=== PATIENT | male | born 1980 | race Caucasian/White ===

== ENCOUNTER 2017-12-02 02:42 | Observation (INO) | payer OTHER ==
[~2017-12-02] VITALS: Ht 182.9 cm; Wt 81.6 kg
[2017-12-02 03:17] LABS: BASOPHIL (%) 1.4 % (0-1); BASOPHIL COUNT 0.1 K/uL (0-0.1); EOSINOPHIL (%) 7.5 % (0-5); EOSINOPHIL COUNT 0.5 K/uL (0-0.3); IMMATURE GRANULOCYTE (%) 0.1 % (0.0-0.7); LYMPHOCYTE (%) 17.6 % (15-42); LYMPHOCYTE COUNT 1.3 K/uL (1.0-2.8); MCH 30.5 PG (29.0-34.0); MCHC 33.3 G/DL (30.0-36.0); MCV 91.4 FL (86-99); MONOCYTE (%) 6.8 % (3-12); MONOCYTE COUNT 0.5 K/uL (0-0.8); NEUTROPHIL (%) 66.6 % (45-76); NEUTROPHIL COUNT 4.8 K/uL (1.8-6.4); PLATELET COUNT 153 K/uL (156-360); RBC DIS.WIDTH-CV 13.8 % (11.8-14.6); RBC DIS.WIDTH-SD 46.3 % (39-53); RED BLOOD COUNT 3.61 M/uL (4.00-5.50); WHITE BLOOD COUNT 7.2 K/uL (4.1-10.2)
[2017-12-02 03:26] LABS: ALBUMIN 3.9 g/dL (3.2-4.8); CHLORIDE 97 mEq/L (99-109); POTASSIUM 3.7 mEq/L (3.7-5.4); SODIUM 137 mEq/L (136-147)
[2017-12-02 03:27] LABS: MAGNESIUM 2.4 mg/dL (1.3-2.7)
[2017-12-02 03:28] LABS: GLUCOSE 112 mg/dL (70-99); TOTAL PROTEIN 6.5 g/dL (6.4-8.3)
[2017-12-02 03:30] LABS: TOTAL BILIRUBIN 1.1 mg/dL (0.0-1.0)
[2017-12-02 03:32] LABS: ALKALINE PHOSPHATASE 60 IU/L (3-129); GFR ESTIMATE (CALCULATED) 8 mL/min/ (58.99-99999)
[2017-12-02 03:33] LABS: UREA NITROGEN (BUN) 32 mg/dL (9-23)
[2017-12-02 03:34] LABS: AST (GOT) 11 IU/L (2-34)
[2017-12-02 03:35] LABS: ALT (GPT) 7 IU/L (3-49)
[2017-12-02 03:37] LABS: TROP-I INTERPRETATION NEGATIVE; TROPONIN-I 0.02 ng/mL (0.0-0.30)
[2017-12-02] MEDS ORDERED: APRESOLINE50 MG PO (05:54)
[2017-12-02] MEDS ORDERED: PROCARDIA XL60 MG PO (05:54)
[2017-12-02] MEDS ORDERED: DIOVAN320 MG PO (05:55)
[2017-12-02] MEDS ORDERED: RENA-VITE RX T1 EACH PO (05:55)
[2017-12-02] MEDS ORDERED: COREG25 M1 PO (05:56)
[2017-12-02] MEDS ORDERED: RENVELA800 MG PO (05:58)
[2017-12-02] MEDS ORDERED: EPOGEN,PRO2000 UNITS SQ (06:00)
[2017-12-02 12:29] VITALS: BP 165/104
== END 2017-12-03 12:09 | disposition left against medical advice (07) ==
LOC: EME → EDBD 02:42 → EDOF 05:38 → CANRESERV 05:40 → ENRESERV 05:40 → EDOF 12-03 03:59
PROVIDERS: Emergency Medicine
DX: R07.9 Chest pain, unspecified (principal); I47.1 Supraventricular tachycardia; I13.2 Hypertensive heart and chronic kidney disease with heart failure and with stage 5 chronic kidney disease, or end stage renal disease; I50.9 Heart failure, unspecified; N18.6 End stage renal disease; Z99.2 Dependence on renal dialysis; Z91.19 Patient's noncompliance with other medical treatment and regimen; Z91.040 Latex allergy status
CPT/HCPCS: 71045; 80048; 80053; 83735; 84484; 85025; 85027; 93005; 99281; 99285; G0378; J1644